=== PATIENT | male | born 1995 | race Caucasian/White ===

== ENCOUNTER 2021-01-01 13:13 | Emergency (ER) | payer MEDICAID, OTHER ==
[~2021-01-01] VITALS: Ht 185.4 cm; Wt 81.6 kg
[2021-01-01] MEDS ORDERED: ONDANSETRON 4 MG (ZOFRAN) ORAL DISSOLVE TAB PO ONE (14:00)
[2021-01-01] MEDS ORDERED: ONDA8TAB13 PO (14:13)
--- NOTE | 2021-01-01 14:13 | ED GU-Female ---
General Chief Complaint: Abdominal/GI Problems Stated Complaint: N/V;DIARRHEA;BODY ACHES Source: patient Exam Limitations: no limitations History of Present Illness Date Seen by Provider: Jan 01, 2021 Time Seen by Provider: 14:11 Initial Comments To ER with nausea vomiting diarrhea onset yesterday. No fevers or chills no headache. He has had Covid twice and this does not feel like that to him. Timing/Duration: constant Severity/Quality: moderate Location: unknown Activities at Onset: none Prior Genitourinary Problems: none Allergies and Home Medications Allergies Coded Allergies: Penicillins (Verified Allergy, Unknown, 01/01/21) Sulfa (Sulfonamide Antibiotics) (Verified Allergy, Unknown, 01/01/21) Patient Home Medication List Home Medication List Reviewed: Yes Review of Systems Review of Systems Constitutional: see HPI EENTM: see HPI Respiratory: no symptoms reported Cardiovascular: no symptoms reported Genitourinary: no symptoms reported Musculoskeletal: no symptoms reported Skin: no symptoms reported Psychiatric/Neurological: No Symptoms Reported Endocrine: No Symptoms Reported Hematologic/Lymphatic: No Symptoms Reported Past Jveauhx-Mnnblm-Eubaxs Hx Patient Social History Tobacco Use?: No Use of E-Cig and/or Vaping dev: Yes E-Cig or Vaping type used: Nicotine, CBD, Synthetic Cannabinoids Use of E-Cig and/or Vaping Magdy: Current Everyday User Substance use?: No Alcohol Use?: No Pt feels they are or have been: No Immunizations Up To Date Influenza Vaccine Up-to-Date: Yes; Up-to-Date Physical Exam Vital Signs Capillary Refill : Height, Weight, BMI Height: '" Weight: lbs. oz. kg; BMI Method: General Appearance: WD/WN, no apparent distress HEENT: PERRL/EOMI, normal ENT inspection, TMs normal Neck: non-tender, full range of motion Cardiovascular: regular rate, rhythm, no murmur Respiratory: no respiratory distress, no accessory muscle use Gastrointestinal: normal bowel sounds, non tender, soft Extremities: normal range of motion, non-tender Neurologic/Psychiatric: alert, normal mood/affect, oriented x 3 Skin: normal color, warm/dry Progress/Results/Core Measures Suspected Sepsis SIRS Temperature: Pulse: Respiratory Rate: Blood Pressure / Mean: Results/Orders Lab Results Laboratory Tests Test 01/01/21 13:37 Range/Units My Orders Orders - SHA SINGER APRN Covid 19 Inhouse Test (01/01/21 13:31) Ondansetron Oral Dissolve Tab (Zofran (01/01/21 14:00) Medications Given in ED Current Medications Medications Dose Ordered Sig/Tg Route Start Time Stop Time Status Last Admin Dose Admin Ondansetron HCl 8 mg ONCE ONCE PO 01/01/21 14:00 01/01/21 14:01 DC 01/01/21 14:08 8 MG Vital Signs/I&O Capillary Refill : Departure Impression Primary Impression: Nausea and vomiting Disposition: HOME, SELF-CARE Condition: Stable Departure-Patient Inst. Decision time for Depature: 14:12 Patient Instructions: No Instuctions Given Scripts Ondansetron (Ondansetron Odt) 8 Mg Tab.rapdis 8 MG PO Q6H PRN for NAUSEA/VOMITING, #10 TAB Prov: SHA SINGER APRN 01/01/21 SHA SINGER APRN Jan 01, 2021 14:13
[2021-01-01 14:17] VITALS: BP 121/80
== END 2021-01-01 14:19 | disposition home or self-care (01) ==
LOC: ER 13:18
DX: R11.2 Nausea with vomiting, unspecified (principal); F17.200 Nicotine dependence, unspecified, uncomplicated; Z20.822 Contact with and (suspected) exposure to COVID-19
CPT/HCPCS: 87636; 99283

== ENCOUNTER 2021-03-27 04:29 | Emergency (ER) | payer SELFPAY ==
[~2021-03-27] VITALS: Ht 185.4 cm; Wt 81.6 kg
[~2021-03-27 04:29] MED LIST: ONDA8TAB13 PO
[2021-03-27 04:36] VITALS: BP 145/96
--- OUTSIDE RECORDS SUMMARY | 2021-03-27 04:37 | XMS REPORT | Clinical Summary ---
Author Author [facility] Organization [facility] Address Unknown Phone Unavailable Care Team Providers Care Mule Packer Name Role Phone Meir English MD Unavailable Source Comments Some departments are not documenting in the electronic medical record. If you d o not see the information that you expected, contact Release of Information in [facility] [employer] Information Management department at [phone] for further assistan ce in locating additional records.[facility] Allergies Comments Active Allergy Reactions Severity Noted Date Amoxicillin RASH Medium 02/28/2015 Penicillins RASH Medium 02/28/2015 Made fingernails fall off Sulfa (Sulfonamide SEE COMMENTS Low 02/28/2015 Antibiotics) Medications End Date Status Medication Sig Dispensed Refills Start Date Active gabapentin (NEURONTIN) Take 300 mg 0 300 mg capsule by mouth four times daily. Active carBAMazepine (TEGRETOL) Take 200 mg 0 200 mg tablet by mouth twice daily. Active oxyCODONE (OXYCONTIN) 15 Take 15 mg by 0 mg TR12 mouth every 4 hours as needed Active oxyCODONE (OXYCONTIN) 30 Take 30 mg by 0 mg TR12 mouth every 4 hours as needed Active clonazePAM (KLONOPIN) 0.5 Take 0.5 mg 0 mg tablet by mouth at bedtime daily. 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 Medical History Medical History Date Comments Psoriatic arthritis (HCC) Neuropathy of left hand Social History Date Tobacco Use Types Packs/Day Years Used Never Smoker Smokeless Tobacco: Never Used Comments Alcohol Use Standard Drinks/Week No 0 (1 standard drink = 0.6 o z pure alcohol) Sex Assigned at Date Recorded Not on file Last Filed Vital Signs Not on file Plan of Treatment Health Maintenance Due Date Last Done Comments HPV VACCINES (1 - Male 2005 2-dose series) HIV SCREENING 2009 DTAP/TDAP VACCINES (1 - 2012 Tdap) HEPATITIS C SCREENING 2012 PHYSICAL (COMPREHENSIVE) 2012 EXAM INFLUENZA VACCINE 01/04/2021 Results Not on filefrom Last 3 Months Insurance Type Payer Benefit Subscriber ID Effective Phone Address Plan / Dates Group [place] [id number] [id number] [facility] Advance Directives Patient Dish Washer Explanation Type Date Recorded Advance 02/14/2015 11:17 AM Directive/DPOA
[2021-03-27] MEDS ORDERED: LIDOCAINE 2% VISCOUS 15 ML UDC PO ONE (04:45)
[2021-03-27] MEDS ORDERED: CLIN150C20 PO (04:47)
--- NOTE | 2021-03-27 04:47 | ED EENT ---
History of Present Illness General Chief Complaint: Dental Problems/Pain Stated Complaint: DENTAL PAIN Source: patient Exam Limitations: no limitations History of Present Illness Date Seen by Provider: Mar 27, 2021 Time Seen by Provider: 04:34 Initial Comments Patient to the ER by private conveyance with chief complaint of about 1 to 2 days of swelling and dental pain in his left side of his face. He has multiple dental caries and states he has been ignoring it. He does not follow with a dentist. He is not having any fevers or difficulty swallowing or breathing. He is not having any nausea. He has not been on antibiotics recently. Amoxicillin gives him a rash. Allergies and Home Medications Allergies Coded Allergies: Penicillins (Verified Allergy, Unknown, 01/01/21) Sulfa (Sulfonamide Antibiotics) (Verified Allergy, Unknown, 01/01/21) Patient Home Medication List Home Medication List Reviewed: Yes Ondansetron (Ondansetron Odt) 8 Mg Tab.rapdis, 8 MG PO Q6H PRN for NAUSEA/VOMITING Prescribed by: SHA SINGER on 01/01/21 1413 Review of Systems Review of Systems Constitutional: No chills, No fever Eyes: Denies Blindness, Denies Drainage Ears: Denies Dizziness, Denies Pain Nose: denies clots, denies congestion Mouth: denies clots; pain, swelling Throat: denies pain, denies swelling Respiratory: No cough, No short of breath All Other Systems Reviewed Negative Unless Noted: Yes Past Ksyamnr-Nyznju-Fnwcjx Hx Patient Social History Tobacco Use?: Yes Substance use?: No Alcohol Use?: No Physical Exam Height, Weight, BMI Height: '" Weight: lbs. oz. kg; 23.00 BMI Method: General Appearance: WD/WN, no apparent distress Eyes: bilateral eye normal inspection, bilateral eye PERRL, bilateral eye EOMI Ears: bilateral ear auricle normal, bilateral ear canal normal Nose: normal inspection; No active bleeding Mouth/Throat: other (Dental caries with moderate gingivitis. No pointing or obvious drainable abscess) Neck: full range of motion, supple, lymphadenopathy (L) Cardiovascular: normal peripheral pulses, regular rate, rhythm Progress/Results/Core Measures Results/Orders My Orders Orders - NICOLE HO Lidocaine 2% Viscous 15 Ml (Xylocaine Vi (03/27/21 04:45) Progress Progress Note : Time: 04:44 Progress Note Viscous lidocaine and clindamycin. Encouraged him to follow-up with a dentist. Departure Impression Primary Impression: Dental abscess Disposition: 01 HOME, SELF-CARE Condition: Stable Departure-Patient Inst. Decision time for Depature: 04:44 Referrals: NO,LOCAL PHYSICIAN (PCP/Family) Primary Care Physician Patient Instructions: Tooth Abscess (DC) Add. Discharge Instructions: Drink plenty of fluids. Tylenol 1000 mg every 8 hours as necessary for pain. Ibuprofen 800 mg every 8 hours as necessary for pain. Warm moist heat applied directly to the jaw can help reduce pain and swelling. Viscous lidocaine 5 cc on gauze applied directly onto the teeth and held in place for 30 minutes. You can do this every 4 hours as necessary. Orajel or other similar topical dental anesthetics. Follow-up with a dentist. Clindamycin 3 capsules 3 times a day with food. All discharge instructions reviewed with patient and/or family. Voiced understanding. Scripts Clindamycin HCl (Clindamycin HCl) 150 Mg Capsule 450 MG PO TID for 7 Days, #63 CAP 0 Refills Prov: NICOLE HO 03/27/21 NICOLE HO Mar 27, 2021 04:47
== END 2021-03-27 04:54 | disposition home or self-care (01) ==
LOC: EDUNIT# 04:29 → ER 04:34
DX: K04.7 Periapical abscess without sinus (principal)
CPT/HCPCS: 99283

== ENCOUNTER → 2021-10-19 | Outpatient (CLI) | payer SELFPAY ==
[~2021-10-19] MED LIST changes: +CLIN150C20 PO
[2021-10-19 14:07] LABS: BASOPHILS % (AUTO) 0 % (0-10); EOSINOPHILS # (AUTO) 0.1 10^3/uL (0.0-0.3); EOSINOPHILS % (AUTO) 3 % (0-10); HEMATOCRIT 39 % (40-54); HEMOGLOBIN 13.4 g/dL (13.3-17.7); LYMPHOCYTES # (AUTO) 1.1 10^3/uL (1.0-4.0); LYMPHOCYTES % (AUTO) 21 % (12-44); MEAN CORPUSCULAR HEMOGLOBIN 31 pg (25-34); MEAN CORPUSCULAR HGB CONC 34 g/dL (32-36); MEAN CORPUSCULAR VOLUME 91 fL (80-99); MEAN PLATELET VOLUME 10.3 fL (9.0-12.2); MONOCYTES # (AUTO) 0.4 10^3/uL (0.0-1.0); MONOCYTES % (AUTO) 8 % (0-12); NEUTROPHILS # (AUTO) 3.6 10^3/uL (1.8-7.8); NEUTROPHILS % (AUTO) 68 % (42-75); PLATELET COUNT 158 10^3/uL (130-400); WHITE BLOOD COUNT 5.2 10^3/uL (4.3-11.0)
[2021-10-19 14:23] LABS: ALBUMIN 4.4 GM/DL (3.2-4.5); POTASSIUM 4.1 MMOL/L (3.6-5.0)
[2021-10-19 14:26] LABS: TOTAL PROTEIN 6.6 GM/DL (6.4-8.2)
[2021-10-19 14:27] LABS: BILIRUBIN,TOTAL 0.3 MG/DL (0.1-1.0)
[2021-10-19 14:29] LABS: CREATININE SERUM 0.88 MG/DL (0.60-1.30)
== END ==
LOC: LAB 13:48
PROVIDERS: ATTEND Pediatrics
DX: L40.0 Psoriasis vulgaris (principal); L29.8 Other pruritus; L40.59 Other psoriatic arthropathy; Z79.899 Other long term (current) drug therapy
CPT/HCPCS: 36415; 80053; 82746; 85025